=== PATIENT | female | born 1955 | race Caucasian/White ===

== ENCOUNTER 2023-03-03 03:39 | Emergency (ER) | payer MEDICARE ==
[~2023-03-03] VITALS: Ht 165.1 cm; Wt 95.5 kg
[2023-03-03 03:44] VITALS: TEMP 98.4
[2023-03-03 06:42] VITALS: BP 122/69; PULSE 50
== END 2023-03-03 06:43 | disposition home or self-care (01) ==
LOC: COL.ER 03:39
DX: S09.90XA Unspecified injury of head, initial encounter (principal); S40.012A Contusion of left shoulder, initial encounter; S00.83XA Contusion of other part of head, initial encounter; Z79.1 Long term (current) use of non-steroidal anti-inflammatories (NSAID); W18.30XA Fall on same level, unspecified, initial encounter; W22.8XXA Striking against or struck by other objects, initial encounter; Y92.002 Bathroom of unspecified non-institutional (private) residence as the place of occurrence of the external cause; Y93.01 Activity, walking, marching and hiking